=== PATIENT | male | born 1995 | race Caucasian/White ===

== ENCOUNTER 2018-03-23 18:37 | Emergency (ER) | payer SELFPAY ==
[2018-03-23 18:48] VITALS: BP 132/74
--- NOTE | 2018-03-23 19:30 | RADIOLOGY REPORT (SQ) ---
EXAM DESCRIPTION: HAND RIGHT 3 VIEWS COMPLETED DATE/TIME: 03/23/2018 7:04 pm REASON FOR STUDY: injury COMPARISON: None. EXAM PARAMETERS: NUMBER OF VIEWS: Three views. TECHNIQUE: AP, lateral and oblique radiographic images acquired of the right hand. LIMITATIONS: None. FINDINGS: MINERALIZATION: Normal. BONES: There is a fracture of the base of the 5th metacarpal. JOINTS: No effusions. SOFT TISSUES: No soft tissue swelling. No foreign body. OTHER: No other significant finding. IMPRESSION: Fracture of the base of the 5th metacarpal. TECHNICAL DOCUMENTATION: JOB ID: [id number] [employer]- All Rights Reserved Reading location - IP/workstation name: [email or web address]
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
[2018-03-23] MEDS ORDERED: IBUPROFEN 600 MG TABLET PO ONE (20:36)
[2018-03-23] MEDS ORDERED: ACETAMINOPHEN SOLN 325 MG/10.15 ML UDCUP PO ONE (20:36)
[2018-03-23] MEDS ORDERED: HYDROCODONE/ACETAMINOPHEN 5-325 MG (6 TAB/ER DISP) PO PRN (20:40)
== END 2018-03-23 21:17 | disposition home or self-care (01) ==
LOC: ER 18:37
DX: S62.339A Displaced fracture of neck of unspecified metacarpal bone, initial encounter for closed fracture (principal); M79.671 Pain in right foot; W22.8XXA Striking against or struck by other objects, initial encounter; F17.200 Nicotine dependence, unspecified, uncomplicated
CPT/HCPCS: 99283; 73130; J3490

== ENCOUNTER 2018-03-28 00:08 | Emergency (ER) | payer SELFPAY ==
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
[2018-03-28 02:49] VITALS: BP 120/71
== END 2018-03-28 02:49 | disposition home or self-care (01) ==
LOC: ER 00:08
DX: S62.339D Displaced fracture of neck of unspecified metacarpal bone, subsequent encounter for fracture with routine healing (principal); W22.09XD Striking against other stationary object, subsequent encounter
CPT/HCPCS: 99283